=== PATIENT | female | born 1985 | race Two or more races ===

== ENCOUNTER 2017-11-08 19:54 | Inpatient (IN) | payer BC ==
[~2017-11-08] VITALS: Ht 160 cm; Wt 86.5 kg
[2017-11-08] MEDS ORDERED: ALBUTEROL SULF 2.5 MG/0.5ML(0.5%) NEB SOLN NEB ONE ×2 (20:15→21:00)
[2017-11-08] MEDS ORDERED: IPRATROPIUM BROM 0.5 MG/2.5ML INH SOL NEB ONE ×2 (20:15→21:00)
[2017-11-08] MEDS ORDERED: methylPREDNISolone SOD SUCC 125 MG/2 ML VL ONE (20:42)
[2017-11-08] MEDS ORDERED: methylPREDNISolone SOD SUCC 125 MG/2 ML VL IV ONE (20:45)
[2017-11-08] MEDS ORDERED: TERBUTALINE SULFATE 1 MG/ML 1ML VIAL SC ONE (21:00)
[2017-11-08] MEDS ORDERED: SODIUM CHLORIDE 0.9% 1,000 ML IV ONE (21:00)
[2017-11-09] MEDS ORDERED: MORPHINE SULFATE 4 MG/ML SYR/VIAL IV PRN (02:30)
[2017-11-09] MEDS ORDERED: NITROGLYCERIN 0.4 MG SL TAB SL PRN (02:30)
[2017-11-09] MEDS ORDERED: ONDANSETRON HCL 4 MG/2 ML VIAL IV PRN (02:30)
[2017-11-09] MEDS ORDERED: ACETAMINOPHEN 325 MG TAB PO PRN (02:30)
[2017-11-09] MEDS ORDERED: TEMAZEPAM 15 MG CAP PO PRN (02:30)
[2017-11-09] MEDS ORDERED: SODIUM CHLORIDE 0.9% 1,000 ML IV SCH (02:30)
[2017-11-09 02:59] LABS: Basophils # (auto) 0.1 uL; Basophils % (auto) 0.5 % (0.0-2.0); Eosinophils # (auto) 0.1 uL; Eosinophils % (auto) 0.5 % (0.0-7.0); Hematocrit 39.8 % (36.0-46.0); Hemoglobin 13.2 g/dL (12.2-16.2); Lymphocytes # (auto) 0.3 uL; Lymphocytes % (auto) 2.2 % (10.0-50.0); Mean Corpuscular Hemoglobin 30.1 pg (28.0-32.0); Mean Corpuscular Hgb Conc. 33.1 g/dL (32.0-36.0); Monocytes # (auto) 0.1 uL; Monocytes % (auto) 0.7 % (0.0-12.0); Neutrophils # (auto) 11.3 uL; Neutrophils % (auto) 96.1 % (37.0-80.0); Platelet Count (auto) 275 10^3/uL (140-450); Red Blood Cells 4.38 10^6/uL (4.0-5.20); Red Cell Distribution Width 12.9 % (11.8-14.3); White Blood Cell 11.8 10^3/uL (4.4-10.8)
[2017-11-09 03:14] LABS: Albumin 3.7 g/dL (3.4-5.0); BUN/Creatinine Ratio 14.1; Calcium 8.3 mg/dL (8.5-10.1); Potassium 3.5 mmol/L (3.5-5.1)
[2017-11-09 03:17] LABS: Bilirubin, Total 0.3 mg/dL (0.2-1.0); Total Protein 8.2 g/dL (6.4-8.2)
[2017-11-09] MEDS: ALBUTEROL SULF 2.5 MG/0.5ML(0.5%) NEB SOLN NEB PRN ×2 (06:23→10:19)
[2017-11-09] MEDS: IPRATROPIUM BROM 0.5 MG/2.5ML INH SOL NEB PRN ×2 (06:23→10:19)
[2017-11-09 09:00] VITALS: BP 117/68
[2017-11-09 09:44] VITALS: BP 127/77
[2017-11-09] MEDS: FAMOTIDINE 20 MG TAB PO SCH ×2 (09:57→21:24)
[2017-11-09] MEDS ORDERED: methylPREDNISolone SOD SUCC 125 MG/2 ML VL IV SCH (10:00)
[2017-11-09] MEDS ORDERED: ENOXAPARIN SOD 40 MG/0.4 ML SYRINGE SC SCH (10:00)
[2017-11-09] MEDS: HYDROcodone-ACET 5/325MG TAB PO PRN ×3 (10:05→21:24)
[2017-11-09] MEDS ORDERED: LEVOFLOXACIN 500MG 100 ML IV ONE (10:45)
[2017-11-09] MEDS ORDERED: HYDR-4683 PO (10:56)
[2017-11-09] MEDS ORDERED: CYCL1TAB18 PO (10:56)
[2017-11-09 12:00] VITALS: BP 111/59
[2017-11-09] MEDS: IPRATROPIUM BROM 0.5 MG/2.5ML INH SOL NEB SCH ×2 (12:00→18:56)
[2017-11-09] MEDS: ALBUTEROL SULF 2.5 MG/0.5ML(0.5%) NEB SOLN NEB SCH ×2 (12:00→18:56)
[2017-11-09 17:05] VITALS: BP 106/59
[2017-11-09] MEDS: CYCLOBENZAPRINE HCL 10 MG TAB PO PRN (18:31)
[2017-11-09] MEDS: methylPREDNISolone SOD SUCC 40 MG/ML VL IV SCH (21:24)
[2017-11-09 22:09] LABS: Urine Bacteria NONE SEEN /hpf (None Seen); Urine Blood Negative /uL (Negative); Urine Specific Gravity 1.004 (1.001-1.035); Urine WBC 1 /hpf (0 - 5)
[2017-11-09 23:10] VITALS: BP 103/57
[2017-11-10] MEDS: IPRATROPIUM BROM 0.5 MG/2.5ML INH SOL NEB SCH ×4 (01:22→19:09)
[2017-11-10] MEDS: ALBUTEROL SULF 2.5 MG/0.5ML(0.5%) NEB SOLN NEB SCH ×4 (01:23→19:09)
[2017-11-10 05:24] VITALS: BP 110/57
[2017-11-10] MEDS: HYDROcodone-ACET 5/325MG TAB PO PRN ×3 (07:59→21:24)
[2017-11-10 08:03] LABS: Calcium 8.9 mg/dL (8.5-10.1); Potassium 4.5 mmol/L (3.5-5.1)
[2017-11-10 08:05] LABS: BUN/Creatinine Ratio 18.9
[2017-11-10 08:11] LABS: Hematocrit 41.2 % (36.0-46.0); Hemoglobin 13.7 g/dL (12.2-16.2); Mean Corpuscular Hemoglobin 30.5 pg (28.0-32.0); Mean Corpuscular Hgb Conc. 33.3 g/dL (32.0-36.0); Mean Corpuscular Volume 91.7 fL (80.0-100.0); Platelet Count (auto) 327 10^3/uL (140-450); Red Blood Cells 4.49 10^6/uL (4.0-5.20); Red Cell Distribution Width 13.3 % (11.8-14.3); White Blood Cell 25.4 10^3/uL (4.4-10.8)
[2017-11-10 08:49] LABS: Basophils % (manual) 0 (0.0-2.0); Blast Cells 0; Eosinophils % (manual) 0 (0-7); Metamyelocytes % 0; Myelocytes % 0; Promyelocytes % 0; Reactive Lymphocytes 0
[2017-11-10 09:00] VITALS: BP 119/88
[2017-11-10] MEDS: FAMOTIDINE 20 MG TAB PO SCH ×2 (11:18→21:24)
[2017-11-10] MEDS: methylPREDNISolone SOD SUCC 40 MG/ML VL IV SCH ×2 (11:18→21:23)
[2017-11-10] MEDS: LEVOFLOXACIN 500MG 100 ML IV SCH (11:18)
[2017-11-10] MEDS ORDERED: FUROSEMIDE 20 MG/2 ML VIAL IV ONE (12:45)
[2017-11-10] MEDS ORDERED: POTASSIUM CHL 20 Meq TABLET PO ONE (12:45)
[2017-11-10 12:50] VITALS: BP 117/85
[2017-11-10 14:53] LABS: Band Neutrophils % (manual) 1; Lymphocytes % (manual) 3 (10.0-50.0); Monocytes % (manual) 7 (0-12)
[2017-11-10 17:19] VITALS: BP 108/74
[2017-11-10] MEDS: CYCLOBENZAPRINE HCL 10 MG TAB PO PRN (18:40)
[2017-11-10 22:00] VITALS: BP 105/64
[2017-11-11] MEDS: HYDROcodone-ACET 5/325MG TAB PO PRN ×5 (02:57→20:51)
[2017-11-11 05:00] VITALS: BP 122/59
[2017-11-11] MEDS: ALBUTEROL SULF 2.5 MG/0.5ML(0.5%) NEB SOLN NEB SCH ×4 (07:20→19:35)
[2017-11-11] MEDS: IPRATROPIUM BROM 0.5 MG/2.5ML INH SOL NEB SCH ×4 (07:20→19:35)
[2017-11-11 09:00] VITALS: BP 118/76
[2017-11-11] MEDS: CYCLOBENZAPRINE HCL 10 MG TAB PO PRN ×2 (09:20→21:36)
[2017-11-11] MEDS: FAMOTIDINE 20 MG TAB PO SCH ×2 (09:20→21:27)
[2017-11-11] MEDS: LEVOFLOXACIN 500MG 100 ML IV SCH (09:22)
[2017-11-11] MEDS: methylPREDNISolone SOD SUCC 40 MG/ML VL IV SCH ×2 (09:22→21:26)
[2017-11-11 13:00] VITALS: BP 104/74
[2017-11-11] MEDS ORDERED: ALPRAZolam 0.25 MG TAB PO ONE (13:00)
[2017-11-11] MEDS ORDERED: POTASSIUM CHL 20 Meq TABLET PO ONE (13:00)
[2017-11-11] MEDS ORDERED: FUROSEMIDE 20 MG/2 ML VIAL IV ONE (13:00)
[2017-11-11 17:00] VITALS: BP 108/72
[2017-11-11] MEDS: ALPRAZolam 0.25 MG TAB PO SCH ×2 (21:27→21:36)
[2017-11-11 22:00] VITALS: BP 117/77
[2017-11-12 05:25] VITALS: BP 118/75
[2017-11-12] MEDS: IPRATROPIUM BROM 0.5 MG/2.5ML INH SOL NEB SCH ×4 (05:54→19:15)
[2017-11-12] MEDS: ALBUTEROL SULF 2.5 MG/0.5ML(0.5%) NEB SOLN NEB SCH ×4 (05:54→19:15)
[2017-11-12] MEDS: HYDROcodone-ACET 5/325MG TAB PO PRN ×4 (06:00→22:09)
[2017-11-12 06:18] LABS: Basophils # (auto) 0 uL; Basophils % (auto) 0.1 % (0.0-2.0); Eosinophils # (auto) 0 uL; Hematocrit 44.7 % (36.0-46.0); Hemoglobin 14.9 g/dL (12.2-16.2); Lymphocytes # (auto) 1.2 uL; Lymphocytes % (auto) 8.6 % (10.0-50.0); Mean Corpuscular Hemoglobin 30.6 pg (28.0-32.0); Mean Corpuscular Hgb Conc. 33.3 g/dL (32.0-36.0); Mean Corpuscular Volume 91.7 fL (80.0-100.0); Monocytes # (auto) 0.8 uL; Monocytes % (auto) 5.9 % (0.0-12.0); Neutrophils # (auto) 12.1 uL; Neutrophils % (auto) 85.4 % (37.0-80.0); Platelet Count (auto) 336 10^3/uL (140-450); Red Blood Cells 4.87 10^6/uL (4.0-5.20); Red Cell Distribution Width 13.5 % (11.8-14.3); White Blood Cell 14.2 10^3/uL (4.4-10.8)
[2017-11-12 06:41] LABS: BUN/Creatinine Ratio 26.9; Calcium 9.2 mg/dL (8.5-10.1); Potassium 4.7 mmol/L (3.5-5.1)
[2017-11-12 08:00] VITALS: BP 114/75
[2017-11-12] MEDS: ALPRAZolam 0.25 MG TAB PO SCH ×2 (10:00→22:00)
[2017-11-12] MEDS: FAMOTIDINE 20 MG TAB PO SCH ×2 (10:10→22:08)
[2017-11-12] MEDS: methylPREDNISolone SOD SUCC 40 MG/ML VL IV SCH ×2 (10:10→22:00)
[2017-11-12] MEDS: LEVOFLOXACIN 500MG 100 ML IV SCH (10:10)
[2017-11-12] MEDS: CYCLOBENZAPRINE HCL 10 MG TAB PO PRN ×2 (10:11→22:08)
[2017-11-12 12:45] VITALS: BP 116/74
[2017-11-12] MEDS ORDERED: IOHEXOL 350 MG/ML 100ML IJ ONE (14:11)
[2017-11-12] MEDS ORDERED: guaiFENesin-DM 100/10mg/5ml SYR PO PRN (14:15)
[2017-11-12 17:00] VITALS: BP 116/74
[2017-11-12 22:39] VITALS: BP 112/69
[2017-11-13] MEDS: HYDROcodone-ACET 5/325MG TAB PO PRN ×3 (03:15→12:44)
[2017-11-13 05:00] VITALS: BP 111/72
[2017-11-13] MEDS: ALBUTEROL SULF 2.5 MG/0.5ML(0.5%) NEB SOLN NEB SCH ×3 (05:59→11:46)
[2017-11-13] MEDS: IPRATROPIUM BROM 0.5 MG/2.5ML INH SOL NEB SCH ×3 (05:59→11:46)
[2017-11-13] MEDS: CYCLOBENZAPRINE HCL 10 MG TAB PO PRN (06:23)
[2017-11-13 09:00] VITALS: BP 118/71
[2017-11-13] MEDS: methylPREDNISolone SOD SUCC 40 MG/ML VL IV SCH (09:55)
[2017-11-13] MEDS: LEVOFLOXACIN 500MG 100 ML IV SCH (09:55)
[2017-11-13] MEDS: FAMOTIDINE 20 MG TAB PO SCH (09:55)
[2017-11-13] MEDS: ALPRAZolam 0.25 MG TAB PO SCH (10:00)
[2017-11-13 13:00] VITALS: BP 112/78
[2017-11-13 14:59] VITALS: BP 112/78
== END 2017-11-13 16:20 | disposition home or self-care (01) | DRG 203 ==
LOC: ER 19:54 → TELE 19:55 → TELE-WESTW 11-09 08:47 → WEST WING 11-10 14:39
PROVIDERS: ADMIT Nurse Practitioner; ATTEND Internal Medicine
DX: J45.902 Unspecified asthma with status asthmaticus (principal); E66.9 Obesity, unspecified; M79.7 Fibromyalgia; F41.9 Anxiety disorder, unspecified; G47.00 Insomnia, unspecified; J45.901 Unspecified asthma with (acute) exacerbation; Z68.33 Body mass index [BMI] 33.0-33.9, adult
CPT/HCPCS: 36415; 71045; 71046; 71275; 80048; 80053; 81001; 81025; 85007; 85025; 85027; 94640; 94644; 94761; 96361; 96372; 96374; 96375; J1956; J2405